=== PATIENT | male | born 1950 | race Caucasian/White ===

== ENCOUNTER → 2016-12-14 | Outpatient (CLI) | payer MEDICARE, BC | LOC: LAB 08:31 | DX: E83.110 Hereditary hemochromatosis (principal); E78.2 Mixed hyperlipidemia; Z12.5 Encounter for screening for malignant neoplasm of prostate; N52.03 Combined arterial insufficiency and corporo-venous occlusive erectile dysfunction; Z20.5 Contact with and (suspected) exposure to viral hepatitis ==

== ENCOUNTER → 2017-12-25 | Outpatient (CLI) | payer MEDICARE, BC ==
[2015-05-01 10:52] VITALS: BP 104/74
[2017-12-25 16:12] LABS: EOS # 0.3 (0.04-0.40); EOS % 3.3 % (0.0-4.0); HEMATOCRIT 45.1 % (42.0-52.0); HEMOGLOBIN 14.5 g/dL (13.5-18.0); LYMPH# 1.9 (1.50-4.00); MEAN CELL VOLUME 85 fl (78-100); MEAN CORPUSCULAR HEMOGLOBIN 27 pg (27-31); MEAN CORPUSCULAR HGB CONC 32 g/dL (33-37); MEAN PLATELET VOLUME 10.6 fl (7.4-10.4); MONO # 0.6 (0.20-0.80); NEU # 5.1 (1.40-6.50); PLATELET COUNT 280 K/mm3 (130-400); RED BLOOD COUNT 5.32 M/mm3 (4.20-5.60); WHITE BLOOD COUNT 7.8 K/mm3 (4.8-10.8)
[2017-12-25 16:46] LABS: ALBUMIN 4.3 g/dL (3.5-5.0); BUN/CREATININE RATIO 22.6 (6.0-26.0); CALCIUM 9.2 mg/dL (8.4-10.2); POTASSIUM 3.9 mmol/L (3.6-5.0); TOTAL BILIRUBIN 0.4 mg/dL (0.2-1.3); TOTAL PROTEIN 7.4 g/dL (6.3-8.2)
[2017-12-25 17:31] LABS: ERYTHROCYTE SEDIMENTATION RATE 2 mm/hr (0-20)
== END ==
LOC: LAB 15:26
PROVIDERS: Internal Medicine
DX: N52.03 Combined arterial insufficiency and corporo-venous occlusive erectile dysfunction (principal); E83.110 Hereditary hemochromatosis; E78.2 Mixed hyperlipidemia; G14 Postpolio syndrome; Z12.5 Encounter for screening for malignant neoplasm of prostate

== ENCOUNTER → 2018-10-11 | Outpatient (CLI) | payer MEDICARE, BC ==
[2015-05-01 10:52] VITALS: BP 104/74
[2018-10-11 15:14] LABS: HEMATOCRIT 43.1 % (42.0-52.0)
== END ==
LOC: LAB 14:42
PROVIDERS: Internal Medicine Gastroenterology
DX: E83.110 Hereditary hemochromatosis (principal)

== ENCOUNTER → 2018-12-22 | Outpatient (CLI) | payer MEDICARE, BC ==
[2015-05-01 10:52] VITALS: BP 104/74
[2018-12-22 10:14] LABS: EOS # 0.2 (0.04-0.40); EOS % 3.7 % (0.0-4.0); HEMATOCRIT 45.5 % (42.0-52.0); HEMOGLOBIN 14.8 g/dL (13.5-18.0); LYMPH# 1.4 (1.50-4.00); MEAN CELL VOLUME 84 fl (78-100); MEAN CORPUSCULAR HEMOGLOBIN 27 pg (27-31); MEAN CORPUSCULAR HGB CONC 33 g/dL (33-37); MEAN PLATELET VOLUME 10.7 fl (7.4-10.4); MONO # 0.4 (0.20-0.80); NEU # 3.6 (1.40-6.50); PLATELET COUNT 236 K/mm3 (130-400); RED BLOOD COUNT 5.44 M/mm3 (4.20-5.60); RED CELL DISTRIBUTION WIDTH 14.2 % (11.5-14.5); WHITE BLOOD COUNT 5.6 K/mm3 (4.8-10.8)
[2018-12-22 10:21] LABS: ALBUMIN 4.5 g/dL (3.5-5.0); CALCIUM 9.4 mg/dL (8.4-10.2); POTASSIUM 4.6 mmol/L (3.6-5.0); TOTAL BILIRUBIN 0.6 mg/dL (0.2-1.3); TOTAL PROTEIN 7.4 g/dL (6.3-8.2)
[2018-12-22 11:09] LABS: ERYTHROCYTE SEDIMENTATION RATE 2 mm/hr (0-20)
== END ==
LOC: LAB 09:17
PROVIDERS: Internal Medicine
DX: Z12.5 Encounter for screening for malignant neoplasm of prostate (principal); Z12.11 Encounter for screening for malignant neoplasm of colon; E83.119 Hemochromatosis, unspecified; E78.2 Mixed hyperlipidemia; N52.9 Male erectile dysfunction, unspecified; G14 Postpolio syndrome

== ENCOUNTER → 2019-01-24 | Outpatient (CLI) | payer MEDICARE, BC ==
[2015-05-01 10:52] VITALS: BP 104/74
[2019-01-24 11:06] LABS: HEMATOCRIT 45.5 % (42.0-52.0); HEMOGLOBIN 14.5 g/dL (13.5-18.0)
== END ==
LOC: LAB 10:45
PROVIDERS: Internal Medicine Gastroenterology
DX: Z01.812 Encounter for preprocedural laboratory examination (principal); E83.110 Hereditary hemochromatosis

== ENCOUNTER → 2019-04-26 | Outpatient (CLI) | payer MEDICARE, BC ==
[2015-05-01 10:52] VITALS: BP 104/74
[2019-04-26 11:15] LABS: EOS # 0.2 (0.04-0.40); EOS % 4.3 % (0.0-4.0); HEMATOCRIT 43.2 % (42.0-52.0); HEMOGLOBIN 13.9 g/dL (13.5-18.0); LYMPH# 1.2 (1.50-4.00); MEAN CELL VOLUME 85 fl (78-100); MEAN CORPUSCULAR HEMOGLOBIN 27 pg (27-31); MEAN CORPUSCULAR HGB CONC 32 g/dL (33-37); MEAN PLATELET VOLUME 10.4 fl (7.4-10.4); MONO # 0.4 (0.20-0.80); NEU # 2.9 (1.40-6.50); PLATELET COUNT 246 K/mm3 (130-400); RED BLOOD COUNT 5.07 M/mm3 (4.20-5.60); RED CELL DISTRIBUTION WIDTH 14.8 % (11.5-14.5); WHITE BLOOD COUNT 4.7 K/mm3 (4.8-10.8)
[2019-04-26 11:39] LABS: ALT/SGPT 19 U/L (0-55); AST-SGOT 23 U/L (5-34); CALCIUM 9.2 mg/dL (8.3-10.5); CARBON DIOXIDE 28 mmol/L (23-31); GLUCOSE 72 mg/dL (75-110); POTASSIUM 4.8 mmol/L (3.5-5.1); SODIUM 141 mmol/L (136-145); TOTAL BILIRUBIN 0.5 mg/dL (0.2-1.2); TOTAL PROTEIN 6.5 g/dL (6.2-8.1)
[2019-04-26 13:54] LABS: ERYTHROCYTE SEDIMENTATION RATE 1 mm/hr (0-20)
== END ==
LOC: LAB 10:38
PROVIDERS: Internal Medicine
DX: E83.119 Hemochromatosis, unspecified (principal); N52.9 Male erectile dysfunction, unspecified; R51 Headache; R50.9 Fever, unspecified

== ENCOUNTER → 2019-05-28 | Outpatient (CLI) | payer MEDICARE, BC ==
[2015-05-01 10:52] VITALS: BP 104/74
[2019-05-28 16:24] LABS: HEMATOCRIT 44.5 % (42.0-52.0); HEMOGLOBIN 14.5 g/dL (13.5-18.0)
== END ==
LOC: LAB 15:16
PROVIDERS: Internal Medicine
DX: E83.110 Hereditary hemochromatosis (principal)

== ENCOUNTER → 2019-09-30 | Outpatient (CLI) | payer MEDICARE, BC ==
[2015-05-01 10:52] VITALS: BP 104/74
[2019-09-30 11:32] LABS: HEMATOCRIT 45.1 % (42.0-52.0); HEMOGLOBIN 14.7 g/dL (13.5-18.0)
== END ==
LOC: RAD 10:38 → LAB 10:38
PROVIDERS: Internal Medicine
DX: M51.36 Other intervertebral disc degeneration, lumbar region (principal); M25.551 Pain in right hip; E83.110 Hereditary hemochromatosis

== ENCOUNTER → 2019-10-02 | Outpatient (CLI) | payer MEDICARE, BC ==
[2015-05-01 10:52] VITALS: BP 104/74
== END ==
LOC: RAD 06:45
DX: M48.07 Spinal stenosis, lumbosacral region (principal); M51.16 Intervertebral disc disorders with radiculopathy, lumbar region; M89.38 Hypertrophy of bone, other site

== ENCOUNTER 2019-10-30 09:30 | Outpatient (RCR) | payer MEDICARE, BC ==
[2015-05-01 10:52] VITALS: BP 104/74
== END 2019-10-30 10:00 | disposition still patient (30) ==
LOC: PT 09:30
DX: M47.816 Spondylosis without myelopathy or radiculopathy, lumbar region (principal); M25.551 Pain in right hip

== ENCOUNTER → 2019-12-25 | Outpatient (CLI) | payer MEDICARE, BC ==
[2015-05-01 10:52] VITALS: BP 104/74
[2019-12-25 09:48] LABS: EOS # 0.2 (0.04-0.40); EOS % 2.6 % (0.0-4.0); HEMOGLOBIN 14.9 g/dL (13.5-18.0); LYMPH# 1.4 (1.50-4.00); MEAN CELL VOLUME 88 fl (78-100); MEAN CORPUSCULAR HEMOGLOBIN 28 pg (27-31); MEAN CORPUSCULAR HGB CONC 32 g/dL (33-37); MEAN PLATELET VOLUME 10.2 fl (7.4-10.4); MONO # 0.5 (0.20-0.80); NEU # 3.6 (1.40-6.50); PLATELET COUNT 242 K/mm3 (130-400); RED BLOOD COUNT 5.37 M/mm3 (4.20-5.60); WHITE BLOOD COUNT 5.7 K/mm3 (4.8-10.8)
[2019-12-25 09:50] LABS: ALBUMIN 4.4 g/dL (3.4-4.8)
[2019-12-25 09:51] LABS: CALCIUM 8.8 mg/dL (8.3-10.5)
[2019-12-25 09:52] LABS: TOTAL PROTEIN 7.2 g/dL (6.2-8.1)
[2019-12-25 09:54] LABS: TOTAL BILIRUBIN 0.6 mg/dL (0.2-1.2)
[2019-12-25 09:59] LABS: MAGNESIUM 1.97 mg/dL (1.60-2.60)
[2019-12-25 10:54] LABS: ERYTHROCYTE SEDIMENTATION RATE 1 mm/hr (0-20)
== END ==
LOC: LAB 09:07
PROVIDERS: Internal Medicine
DX: Z12.5 Encounter for screening for malignant neoplasm of prostate (principal); Z12.11 Encounter for screening for malignant neoplasm of colon; E83.119 Hemochromatosis, unspecified; E78.2 Mixed hyperlipidemia; N52.03 Combined arterial insufficiency and corporo-venous occlusive erectile dysfunction

== ENCOUNTER → 2020-01-02 | Outpatient (CLI) | payer MEDICARE, BC ==
[2015-05-01 10:52] VITALS: BP 104/74
== END ==
LOC: RAD 09:53
DX: M50.322 Other cervical disc degeneration at C5-C6 level (principal); M40.50 Lordosis, unspecified, site unspecified

== ENCOUNTER → 2020-02-27 | Outpatient (CLI) | payer MEDICARE, BC ==
[2015-05-01 10:52] VITALS: BP 104/74
[2020-02-27 15:27] LABS: HEMATOCRIT 45.5 % (42.0-52.0); HEMOGLOBIN 14.8 g/dL (13.5-18.0)
== END ==
LOC: LAB 15:01
PROVIDERS: Internal Medicine Gastroenterology
DX: E83.110 Hereditary hemochromatosis (principal)

== ENCOUNTER → 2020-04-16 | Outpatient (CLI) | payer MEDICARE, BC ==
[2015-05-01 10:52] VITALS: BP 104/74
== END ==
LOC: LAB 15:44
DX: Z01.818 Encounter for other preprocedural examination (principal); J20.9 Acute bronchitis, unspecified; Z20.828 Contact with and (suspected) exposure to other viral communicable diseases

== ENCOUNTER → 2020-07-07 | Outpatient (CLI) | payer MEDICARE, BC ==
[2015-05-01 10:52] VITALS: BP 104/74
[2020-07-07 14:34] LABS: HEMATOCRIT 43.7 % (42.0-52.0); HEMOGLOBIN 14.5 g/dL (13.5-18.0)
== END ==
LOC: LAB 14:10
PROVIDERS: Internal Medicine Gastroenterology
DX: E83.110 Hereditary hemochromatosis (principal)

== ENCOUNTER → 2020-11-20 | Outpatient (CLI) | payer MEDICARE, BC ==
[2015-05-01 10:52] VITALS: BP 104/74
[2020-11-20 11:04] LABS: HEMOGLOBIN 15.5 g/dL (13.5-18.0)
== END ==
LOC: LAB 10:51
PROVIDERS: Internal Medicine
DX: E83.110 Hereditary hemochromatosis (principal)

== ENCOUNTER → 2020-12-23 | Outpatient (CLI) | payer MEDICARE, BC ==
[2015-05-01 10:52] VITALS: BP 104/74
[2020-12-23 10:20] LABS: ALBUMIN 4.4 g/dL (3.4-4.8); POTASSIUM 4.9 mmol/L (3.5-5.1)
[2020-12-23 10:21] LABS: CALCIUM 9.2 mg/dL (8.3-10.5)
[2020-12-23 10:25] LABS: TOTAL BILIRUBIN 0.9 mg/dL (0.2-1.2)
[2020-12-23 11:26] LABS: EOS # 0.1 (0.04-0.40); EOS % 2.2 % (0.0-4.0); HEMATOCRIT 45.6 % (42.0-52.0); HEMOGLOBIN 14.9 g/dL (13.5-18.0); LYMPH# 1.3 (1.50-4.00); MEAN CELL VOLUME 88 fl (78-100); MEAN CORPUSCULAR HEMOGLOBIN 29 pg (27-31); MEAN CORPUSCULAR HGB CONC 33 g/dL (33-37); MEAN PLATELET VOLUME 10.3 fl (7.4-10.4); MONO # 0.5 (0.20-0.80); NEU # 4.4 (1.40-6.50); PLATELET COUNT 259 K/mm3 (130-400); RED CELL DISTRIBUTION WIDTH 13.7 % (11.5-14.5); WHITE BLOOD COUNT 6.4 K/mm3 (4.8-10.8)
[2020-12-23 11:32] LABS: ERYTHROCYTE SEDIMENTATION RATE 2 mm/hr (0-20)
== END ==
LOC: LAB 09:25
PROVIDERS: Internal Medicine
DX: Z12.5 Encounter for screening for malignant neoplasm of prostate (principal); E78.2 Mixed hyperlipidemia; E83.110 Hereditary hemochromatosis; K90.9 Intestinal malabsorption, unspecified

== ENCOUNTER → 2021-03-30 | Outpatient (CLI) | payer MEDICARE, BC ==
[2015-05-01 10:52] VITALS: BP 104/74
[2021-03-30 14:16] LABS: HEMATOCRIT 46.3 % (42.0-52.0); HEMOGLOBIN 15.4 g/dL (13.5-18.0)
== END ==
LOC: LAB 13:58
PROVIDERS: Internal Medicine
DX: E83.110 Hereditary hemochromatosis (principal)

== ENCOUNTER → 2021-08-16 | Outpatient (CLI) | payer MEDICARE, BC ==
[2021-08-16 16:03] LABS: HEMATOCRIT 44.8 % (42.0-52.0)
== END ==
LOC: LAB 15:49
PROVIDERS: Internal Medicine Gastroenterology
DX: E83.110 Hereditary hemochromatosis (principal)

== ENCOUNTER → 2021-12-29 | Outpatient (CLI) | payer MEDICARE, BC ==
[2021-12-29 14:01] LABS: HEMATOCRIT 46.2 % (42.0-52.0); HEMOGLOBIN 15.3 g/dL (13.5-18.0)
[2021-12-29 14:47] LABS: BASO # 0.03 K/mm3 (0.02-0.10); EOS # 0.16 K/mm3 (0.04-0.40); EOS % 2.3 % (0.0-4.0); LYMPH# 1.77 K/mm3 (1.50-4.00); MEAN CELL VOLUME 86 fl (78-100); MEAN CORPUSCULAR HEMOGLOBIN 29 pg (27-31); MEAN CORPUSCULAR HGB CONC 34 g/dL (33-37); MEAN PLATELET VOLUME 10.7 fl (7.4-10.4); MONO # 0.52 K/mm3 (0.20-0.80); NEU # 4.36 K/mm3 (1.40-6.50); PLATELET COUNT 243 K/mm3 (130-400); RED BLOOD COUNT 5.33 M/mm3 (4.20-5.60); RED CELL DISTRIBUTION WIDTH 13.2 % (11.5-14.5); WHITE BLOOD COUNT 6.9 K/mm3 (4.8-10.8)
[2021-12-29 15:05] LABS: ALBUMIN 4.5 g/dL (3.4-4.8); POTASSIUM 4.4 mmol/L (3.5-5.1)
[2021-12-29 15:06] LABS: CALCIUM 9.5 mg/dL (8.3-10.5)
[2021-12-29 15:09] LABS: TOTAL BILIRUBIN 0.8 mg/dL (0.2-1.2)
[2021-12-29 15:17] LABS: TOTAL PROTEIN 7.4 g/dL (6.2-8.1)
[2021-12-29 15:40] LABS: ERYTHROCYTE SEDIMENTATION RATE 2 mm/hr (0-20)
== END ==
LOC: LAB 13:39
PROVIDERS: Internal Medicine
DX: Z12.5 Encounter for screening for malignant neoplasm of prostate (principal); Z12.11 Encounter for screening for malignant neoplasm of colon; E83.110 Hereditary hemochromatosis; E78.2 Mixed hyperlipidemia; K90.9 Intestinal malabsorption, unspecified

== ENCOUNTER → 2022-04-06 | Outpatient (CLI) | payer MEDICARE, BC ==
[2022-04-06 13:39] LABS: BASO # 0.04 K/mm3 (0.02-0.10); EOS # 0.32 K/mm3 (0.04-0.40); EOS % 4.6 % (0.0-4.0); HEMATOCRIT 47.6 % (42.0-52.0); HEMOGLOBIN 15.4 g/dL (13.5-18.0); MEAN CELL VOLUME 87 fl (78-100); MEAN CORPUSCULAR HEMOGLOBIN 28 pg (27-31); MEAN CORPUSCULAR HGB CONC 32 g/dL (33-37); MEAN PLATELET VOLUME 10.5 fl (7.4-10.4); MONO # 0.66 K/mm3 (0.20-0.80); NEU # 4.39 K/mm3 (1.40-6.50); PLATELET COUNT 276 K/mm3 (130-400); RED BLOOD COUNT 5.45 M/mm3 (4.20-5.60); RED CELL DISTRIBUTION WIDTH 12.9 % (11.5-14.5); WHITE BLOOD COUNT 6.9 K/mm3 (4.8-10.8)
[2022-04-06 13:43] LABS: ALBUMIN 4.3 g/dL (3.4-4.8); POTASSIUM 5.7 mmol/L (3.5-5.1)
[2022-04-06 13:44] LABS: CALCIUM 9.5 mg/dL (8.3-10.5)
[2022-04-06 13:45] LABS: TOTAL PROTEIN 7.2 g/dL (6.2-8.1)
[2022-04-06 13:47] LABS: TOTAL BILIRUBIN 0.4 mg/dL (0.2-1.2)
== END ==
LOC: LAB 13:07
PROVIDERS: Nurse Practitioner Family
DX: U07.1 COVID-19 (principal); H61.21 Impacted cerumen, right ear

== ENCOUNTER → 2022-04-08 | Outpatient (CLI) | payer MEDICARE, BC ==
[2022-04-08 11:30] LABS: POTASSIUM 4.4 mmol/L (3.5-5.1)
== END ==
LOC: LAB 10:59
PROVIDERS: Nurse Practitioner Family
DX: E87.5 Hyperkalemia (principal)

== ENCOUNTER → 2022-05-05 | Outpatient (CLI) | payer MEDICARE, BC ==
[2022-05-05 13:49] LABS: HEMOGLOBIN 14.9 g/dL (13.5-18.0); MEAN PLATELET VOLUME 9.8 fl (7.4-10.4); RED BLOOD COUNT 5.31 M/mm3 (4.20-5.60); RED CELL DISTRIBUTION WIDTH 13.5 % (11.5-14.5)
[2022-05-06 02:25] LABS: TRANSFERRIN 224 mg/dL (163-344)
== END ==
LOC: LAB 13:35
PROVIDERS: Internal Medicine
DX: E83.110 Hereditary hemochromatosis (principal); E53.8 Deficiency of other specified B group vitamins

== ENCOUNTER → 2022-12-27 | Outpatient (CLI) | payer MEDICARE, BC ==
[2022-12-27 10:15] LABS: BASO # 0.03 K/mm3 (0.02-0.10); EOS # 0.17 K/mm3 (0.04-0.40); HEMATOCRIT 47.9 % (42.0-52.0); HEMOGLOBIN 16.1 g/dL (13.5-18.0); MEAN CELL VOLUME 87 fl (78-100); MEAN CORPUSCULAR HEMOGLOBIN 29 pg (27-31); MEAN CORPUSCULAR HGB CONC 34 g/dL (33-37); MEAN PLATELET VOLUME 10.3 fl (7.4-10.4); MONO # 0.41 K/mm3 (0.20-0.80); NEU # 3.51 K/mm3 (1.40-6.50); PLATELET COUNT 223 K/mm3 (130-400); RED BLOOD COUNT 5.51 M/mm3 (4.20-5.60); RED CELL DISTRIBUTION WIDTH 13.4 % (11.5-14.5); WHITE BLOOD COUNT 5.7 K/mm3 (4.8-10.8)
[2022-12-27 10:31] LABS: ALBUMIN 4.4 g/dL (3.4-4.8); POTASSIUM 4.7 mmol/L (3.5-5.1)
[2022-12-27 10:32] LABS: CALCIUM 9.6 mg/dL (8.3-10.5)
[2022-12-27 10:33] LABS: TOTAL PROTEIN 7.2 g/dL (6.2-8.1)
[2022-12-27 10:35] LABS: TOTAL BILIRUBIN 1.1 mg/dL (0.2-1.2)
[2022-12-27 12:41] LABS: ERYTHROCYTE SEDIMENTATION RATE 1 mm/hr (0-20)
== END ==
LOC: LAB 09:52
PROVIDERS: Internal Medicine
DX: E83.110 Hereditary hemochromatosis (principal); E78.2 Mixed hyperlipidemia; Z12.5 Encounter for screening for malignant neoplasm of prostate; K90.9 Intestinal malabsorption, unspecified; Z12.11 Encounter for screening for malignant neoplasm of colon; Z28.39 Other underimmunization status; E53.8 Deficiency of other specified B group vitamins

== ENCOUNTER → 2023-01-06 | Outpatient (CLI) | payer MEDICARE, BC | LOC: RAD 14:12 | DX: K59.00 Constipation, unspecified (principal); R19.7 Diarrhea, unspecified ==

== ENCOUNTER → 2023-01-07 | Outpatient (CLI) | payer MEDICARE, BC | LOC: LAB 10:10 | DX: R19.7 Diarrhea, unspecified (principal) ==

== ENCOUNTER → 2023-01-10 | Outpatient (CLI) | payer MEDICARE, BC | LOC: LAB 11:12 | DX: E83.110 Hereditary hemochromatosis (principal) ==

== ENCOUNTER → 2023-07-25 | Outpatient (CLI) | payer MEDICARE, BC | LOC: RAD 11:27 | DX: M17.12 Unilateral primary osteoarthritis, left knee (principal) ==

== ENCOUNTER 2023-10-17 10:00 | Outpatient (RCR) | payer MEDICARE, BC | END 2023-11-12 | LOC: PT | DX: M22.42 Chondromalacia patellae, left knee (principal) ==

== ENCOUNTER → 2024-01-03 | Outpatient (CLI) | payer MEDICARE, BC ==
[2024-01-03 09:54] LABS: BASO # 0.02 K/mm3 (0.02-0.10); EOS # 0.18 K/mm3 (0.04-0.40); EOS % 2.6 % (0.0-4.0); HEMATOCRIT 48.4 % (42.0-52.0); HEMOGLOBIN 15.9 g/dL (13.5-18.0); MEAN CELL VOLUME 89 fl (78-100); MEAN CORPUSCULAR HEMOGLOBIN 29 pg (27-31); MEAN CORPUSCULAR HGB CONC 33 g/dL (33-37); MEAN PLATELET VOLUME 10.1 fl (7.4-10.4); MONO # 0.52 K/mm3 (0.20-0.80); NEU # 4.53 K/mm3 (1.40-6.50); PLATELET COUNT 236 K/mm3 (130-400); RED BLOOD COUNT 5.46 M/mm3 (4.20-5.60); RED CELL DISTRIBUTION WIDTH 12.4 % (11.5-14.5); WHITE BLOOD COUNT 6.9 K/mm3 (4.8-10.8)
[2024-01-03 10:08] LABS: ALBUMIN 4.4 g/dL (3.4-4.8); SODIUM 137 mmol/L (136-145)
[2024-01-03 10:09] LABS: CALCIUM 9.3 mg/dL (8.3-10.5)
[2024-01-03 10:11] LABS: GLUCOSE 91 mg/dL (75-110)
[2024-01-03 10:12] LABS: CARBON DIOXIDE 24 mmol/L (23-31); TOTAL BILIRUBIN 0.9 mg/dL (0.2-1.2)
[2024-01-03 10:16] LABS: AST-SGOT 24 U/L (5-34)
[2024-01-03 10:17] LABS: ALT/SGPT 20 U/L (0-55)
[2024-01-03 21:58] LABS: HEPATITIS C VIRUS ANTIBODY Negative (Negative)
== END ==
LOC: LAB 09:29
PROVIDERS: Internal Medicine
DX: Z12.5 Encounter for screening for malignant neoplasm of prostate (principal); Z12.11 Encounter for screening for malignant neoplasm of colon; Z11.59 Encounter for screening for other viral diseases; M46.96 Unspecified inflammatory spondylopathy, lumbar region; E83.110 Hereditary hemochromatosis; E78.2 Mixed hyperlipidemia; K90.9 Intestinal malabsorption, unspecified

== ENCOUNTER → 2024-03-06 | Outpatient (CLI) | payer MEDICARE, BC ==
[2024-03-06 10:45] LABS: HEMOGLOBIN 15.4 g/dL (13.5-18.0)
== END ==
LOC: LAB 10:30
PROVIDERS: Internal Medicine
DX: E83.110 Hereditary hemochromatosis (principal)

== ENCOUNTER → 2024-08-19 | Outpatient (CLI) | payer MEDICARE, BC ==
[2024-08-19 10:12] LABS: HEMATOCRIT 45.3 % (42.0-52.0); HEMOGLOBIN 14.8 g/dL (13.5-18.0); MEAN PLATELET VOLUME 9.9 fl (7.4-10.4); RED BLOOD COUNT 5.06 M/mm3 (4.20-5.60)
== END ==
LOC: LAB 10:00
PROVIDERS: Internal Medicine
DX: E83.110 Hereditary hemochromatosis (principal)

== ENCOUNTER → 2025-01-07 | Outpatient (CLI) | payer MEDICARE, BC ==
[2025-01-07 12:20] LABS: BASO # 0.03 K/mm3 (0.02-0.10); EOS # 0.13 K/mm3 (0.04-0.40); HEMATOCRIT 48.4 % (42.0-52.0); HEMOGLOBIN 15.9 g/dL (13.5-18.0); LYMPH# 1.39 K/mm3 (1.50-4.00); MEAN CELL VOLUME 89 fl (78-100); MEAN CORPUSCULAR HEMOGLOBIN 29 pg (27-31); MEAN CORPUSCULAR HGB CONC 33 g/dL (33-37); MEAN PLATELET VOLUME 9.8 fl (7.4-10.4); MONO # 0.56 K/mm3 (0.20-0.80); NEU # 4.44 K/mm3 (1.40-6.50); PLATELET COUNT 240 K/mm3 (130-400); RED BLOOD COUNT 5.45 M/mm3 (4.20-5.60); RED CELL DISTRIBUTION WIDTH 13.2 % (11.5-14.5); WHITE BLOOD COUNT 6.6 K/mm3 (4.8-10.8)
[2025-01-07 12:33] LABS: ALBUMIN 4.4 g/dL (3.4-4.8)
[2025-01-07 12:34] LABS: CALCIUM 9.9 mg/dL (8.3-10.5)
[2025-01-07 12:35] LABS: TOTAL PROTEIN 7.4 g/dL (6.2-8.1)
[2025-01-07 12:37] LABS: TOTAL BILIRUBIN 0.8 mg/dL (0.2-1.2)
[2025-01-07 12:42] LABS: MAGNESIUM 2.02 mg/dL (1.60-2.60)
[2025-01-07 23:23] LABS: TESTOSTERONE 624 ng/dL (221-716)
== END ==
LOC: LAB 11:55
PROVIDERS: Internal Medicine
DX: Z12.5 Encounter for screening for malignant neoplasm of prostate (principal); Z12.11 Encounter for screening for malignant neoplasm of colon; K90.9 Intestinal malabsorption, unspecified; E53.8 Deficiency of other specified B group vitamins; E83.110 Hereditary hemochromatosis; E78.2 Mixed hyperlipidemia; F52.21 Male erectile disorder

== ENCOUNTER → 2025-01-23 | Outpatient (CLI) | payer MEDICARE, BC ==
[~2025-01-23] VITALS: Ht 185.4 cm; Wt 79.5 kg
[2025-01-23 14:32] VITALS: BP 153/82
[2025-01-23 14:40] LABS: HEMATOCRIT 45.4 % (42.0-52.0); HEMOGLOBIN 15.2 g/dL (13.5-18.0)
[2025-01-23 14:58] VITALS: BP 165/82
== END ==
LOC: AMSURD 14:18
PROVIDERS: Internal Medicine
DX: E83.110 Hereditary hemochromatosis (principal)

== ENCOUNTER → 2025-02-13 | Outpatient (CLI) | payer MEDICARE, BC | LOC: RAD 15:41 | DX: M79.605 Pain in left leg (principal); M25.572 Pain in left ankle and joints of left foot ==